=== PATIENT | female | born 1995 | race African-American/Black ===

== ENCOUNTER 2020-04-06 15:31 | Inpatient (IN) | payer MEDICAID, OTHER ==
[~2020-04-06] VITALS: Ht 167.6 cm; Wt 118.9 kg
[2020-04-06 17:36] LABS: ANION GAP 10 mmol/L (8-16); BASOPHILS % (AUTO) 0.3 % (0.0-2.0); CALCIUM, TOTAL 9.1 mg/dL (8.8-10.5); CARBON DIOXIDE 27 mmol/L (22-29); CHLORIDE 103 mmol/L (98-107); CREATININE 0.98 mg/dL (0.60-1.30); EOSINOPHILS % (AUTO) 0.8 % (1.0-6.0); GLOMERULAR FILTR. RATE CALC > 60 mL/min (>60); GLUCOSE,RANDOM 106 mg/dL (70-110); HEMATOCRIT 38.7 % (36-46); HEMOGLOBIN 12.6 g/dL (12.0-16.0); LYMPHOCYTES # (AUTO) 2.8 K/uL (1.0-4.8); MEAN CORPUSCULAR HEMOGLOBIN 28.5 pg (26.0-34.0); MEAN CORPUSCULAR HGB CONC 32.5 G/dL (31.0-37.0); MEAN CORPUSCULAR VOLUME 88 fL (80-100); MONOCYTES # (AUTO) 0.5 K/uL (0.1-1.0); MONOCYTES % (AUTO) 5.5 % (2.0-9.0); NEUTROPHILS # (AUTO) 6.3 K/uL (1.8-7.7); NEUTROPHILS % (AUTO) 64.4 % (40.0-70.0); PLATELET COUNT (AUTO) 309 K/uL (150-450); POTASSIUM 3.2 mmol/L (3.5-5.1); RED BLOOD CELL COUNT(AUTO) 4.41 MIL/uL (4.00-5.20); RED CELL DISTRIBUTION WIDTH 14.8 % (11.5-14.5); SODIUM SERUM 140 mmol/L (136-145); UREA NITROGEN, BLOOD 10 mg/dL (7-18)
[2020-04-06 17:42] LABS: ALANINE AMINOTRANSFERASE 27 U/L (12-78); ALBUMIN 3.5 g/dL (3.4-5.0); ALKALINE PHOSPHATASE 53 U/L (46-116); ASPARTATE AMINOTRANSFERASE 20 U/L (15-37); BILIRUBIN,TOTAL 0.2 mg/dL (0.1-1.0); TOTAL PROTEIN, SERUM 7.3 g/dL (6.4-8.2)
[2020-04-06 17:54] LABS: AMPHET/METH SCREEN,URINE NEGATIVE (NEGATIVE); BARBITURATE SCREEN, URINE NEGATIVE (NEGATIVE); BENZODIAZEPINES SCREEN,URINE NEGATIVE (NEGATIVE); CANNABINOID SCREEN,URINE POSITIVE (NEGATIVE); COCAINE SCREEN,URINE NEGATIVE (NEGATIVE); METHADONE SCREEN, URINE NEGATIVE (NEGATIVE); OPIATE SCREEN,URINE NEGATIVE (NEGATIVE)
[2020-04-06 17:57] LABS: PHENCYCLIDINE SCREEN,URINE NEGATIVE (NEGATIVE)
[2020-04-06] MEDS ORDERED: POTASSIUM CHLORIDE 20 MEQ ER TABLET PO ONE (19:30)
[2020-04-06 21:44] VITALS: BP 148/78
[2020-04-06] MEDS: LORazepam 2 MG TABLET PO PRN (22:19)
[2020-04-06] MEDS: HALOPERIDOL 5 MG TABLET PO PRN (22:19)
[2020-04-07] MEDS ORDERED: CloNIDine HCL 0.1 MG TABLET PO PRN (07:30)
[2020-04-07] MEDS ORDERED: DOCUSATE SODIUM 100 MG CAPSULE PO PRN (07:30)
[2020-04-07] MEDS ORDERED: PETROLATUM,WHITE 28 GM JELLY TP PRN (07:30)
[2020-04-07] MEDS ORDERED: IBUPROFEN 400 MG TABLET PO PRN (07:30)
[2020-04-07] MEDS ORDERED: ONDANSETRON HCL 4 MG TABLET PO PRN (07:30)
[2020-04-07] MEDS ORDERED: NICOTINE 14 MG/24 HOUR PATCH TD PRN (07:30)
[2020-04-07] MEDS ORDERED: ALBUTEROL SULFATE HFA 90 MCG/PUFF 8 GM INHALER IH PRN (07:30)
[2020-04-07] MEDS ORDERED: MAG HYDROX/AL HYDROX/SIMETH ES 30 ML SUSPENSION UDCUP PO PRN (07:30)
[2020-04-07] MEDS ORDERED: MAGNESIUM HYDROXIDE SUSPENSION 30 ML UDCUP PO PRN (07:30)
[2020-04-07] MEDS ORDERED: LOPERAMIDE HCL 2 MG CAPSULE PO PRN (07:30)
[2020-04-07] MEDS ORDERED: GuaiFENesin/D-METHORPHAN [SUGAR-FREE] 200-20MG/10 ML SYRUP UDCUP PO PRN (07:30)
[2020-04-07 09:48] VITALS: BP 124/88
[2020-04-07] MEDS: LORazepam 2 MG TABLET PO PRN (12:54)
[2020-04-07] MEDS: HALOPERIDOL 5 MG TABLET PO PRN (12:54)
[2020-04-07 16:00] VITALS: BP 163/78
[2020-04-07] MEDS: LURASIDONE HCL 40 MG TABLET PO SCH (16:38)
[2020-04-08] MEDS: ZOLPIDEM TARTRATE 10 MG TABLET PO PRN (01:13)
[2020-04-08 07:25] LABS: HEMOGLOBIN A1C 5.6 % (3.8-5.6)
[2020-04-08 07:51] LABS: ALANINE AMINOTRANSFERASE 21 U/L (12-78); ALBUMIN 3.1 g/dL (3.4-5.0); ALKALINE PHOSPHATASE 47 U/L (46-116); ANION GAP 8 mmol/L (8-16); ASPARTATE AMINOTRANSFERASE 16 U/L (15-37); BILIRUBIN,TOTAL 0.2 mg/dL (0.1-1.0); CALCIUM, TOTAL 8.7 mg/dL (8.8-10.5); CARBON DIOXIDE 24 mmol/L (22-29); CHLORIDE 106 mmol/L (98-107); CHOL/HDL RATIO 3.8 (3.9-5.7); CHOLESTEROL 123 mg/dL (131-200); CREATININE 0.84 mg/dL (0.60-1.30); GLOMERULAR FILTR. RATE CALC > 60 mL/min (>60); GLUCOSE,RANDOM 89 mg/dL (70-110); HDL CHOLESTEROL 32 mg/dL (40-60); LDL CHOL (CALC.) 65 mg/dL (0-130); POTASSIUM 3.7 mmol/L (3.5-5.1); SODIUM SERUM 138 mmol/L (136-145); TOTAL PROTEIN, SERUM 6.8 g/dL (6.4-8.2); TRIGLYCERIDES 132 mg/dL (15-150); UREA NITROGEN, BLOOD 11 mg/dL (7-18)
[2020-04-08] MEDS: LORazepam 2 MG TABLET PO PRN (08:47)
[2020-04-08] MEDS: HALOPERIDOL 5 MG TABLET PO PRN (08:47)
[2020-04-08] MEDS: DULoxetine HCL 20 MG CAPSULE PO SCH (08:47)
[2020-04-08 11:16] VITALS: BP 153/98
[2020-04-08 16:00] VITALS: BP 132/95
[2020-04-08] MEDS: LURASIDONE HCL 40 MG TABLET PO SCH (16:41)
[2020-04-09 09:32] VITALS: BP 158/82
[2020-04-09] MEDS: LORazepam 2 MG TABLET PO PRN (10:00)
[2020-04-09] MEDS: HALOPERIDOL 5 MG TABLET PO PRN (10:00)
[2020-04-09] MEDS: DULoxetine HCL 20 MG CAPSULE PO SCH (10:00)
[2020-04-09 16:30] VITALS: BP 142/84
[2020-04-09] MEDS: LURASIDONE HCL 40 MG TABLET PO SCH (16:58)
[2020-04-09] MEDS: ZOLPIDEM TARTRATE 10 MG TABLET PO PRN (22:15)
[2020-04-10] MEDS: ACETAMINOPHEN 325 MG TABLET PO PRN ×2 (04:14→16:16)
[2020-04-10 04:15] VITALS: BP 154/87
[2020-04-10] MEDS: LORazepam 2 MG TABLET PO PRN (08:18)
[2020-04-10] MEDS: DULoxetine HCL 20 MG CAPSULE PO SCH (08:18)
[2020-04-10 08:44] VITALS: BP 165/106
[2020-04-10 16:00] VITALS: BP 112/76
[2020-04-10 16:15] VITALS: BP 112/76
[2020-04-10] MEDS: LURASIDONE HCL 40 MG TABLET PO SCH (16:15)
[2020-04-11] MEDS: ZOLPIDEM TARTRATE 10 MG TABLET PO PRN (00:30)
[2020-04-11 08:23] VITALS: BP 130/97
[2020-04-11] MEDS: DULoxetine HCL 20 MG CAPSULE PO SCH (09:09)
[2020-04-11] MEDS ORDERED: DULO20CA27 PO (12:01)
[2020-04-11] MEDS ORDERED: LURA40TA2 PO (12:01)
[2020-04-11] MEDS: LURASIDONE HCL 40 MG TABLET PO SCH (17:03)
== END 2020-04-11 18:00 | disposition home or self-care (01) | DRG 750 ==
LOC: EMS 15:38 → 3EI 21:00
DX: F25.1 Schizoaffective disorder, depressive type (principal); E87.6 Hypokalemia; F12.90 Cannabis use, unspecified, uncomplicated; R45.851 Suicidal ideations; Z20.828 Contact with and (suspected) exposure to other viral communicable diseases; Z79.899 Other long term (current) drug therapy
CPT/HCPCS: 83036; 87426; G0480